=== PATIENT | male | born 1960 | race Caucasian/White ===

== ENCOUNTER 2017-05-01 10:35 | Emergency (ER) | payer OTHER ==
[2017-05-01 10:41] VITALS: RESP 18; TEMP 98.6; O2SAT 95
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
[2017-05-01 13:54] VITALS: BP 114/85; PULSE 65
== END 2017-05-01 13:55 | disposition home or self-care (01) ==
DX: S22.32XA Fracture of one rib, left side, initial encounter for closed fracture (principal); S20.212A Contusion of left front wall of thorax, initial encounter; M62.830 Muscle spasm of back; V18.0XXA Pedal cycle driver injured in noncollision transport accident in nontraffic accident, initial encounter; Y99.8 Other external cause status; Y93.55 Activity, bike riding